=== PATIENT | male | born 1955 | race Caucasian/White ===

== ENCOUNTER → 2024-09-10 | Outpatient (CLI) | payer BC, SELFPAY ==
[2024-09-10 11:26] LABS: Glucose Estimated Average 315 mg/dL (80-131); Hemoglobin A1C 12.6 % Hgb (4.8-6.0)
== END | disposition home or self-care (01) ==
LOC: COPL 09:35
PROVIDERS: PCP Family Medicine; Referring Provider Family Medicine; Visit Provider Family Medicine
DX: Z00.01 Encounter for general adult medical examination with abnormal findings (principal); E11.65 Type 2 diabetes mellitus with hyperglycemia
CPT/HCPCS: 36415; 80053; 80061; 83036; 84153

== ENCOUNTER → 2024-09-13 | Outpatient (CLI) | payer BC, SELFPAY ==
[2024-09-13 10:08] LABS: Microalbumin, 24hr Urine > 380 mg/L (Unavailable)
[2024-09-13 10:25] LABS: Alanine Aminotransferase 37 U/L (10-49); Albumin, Serum 4.6 gm/dL (3.4-4.8); Albumin/Globulin Ratio 1.6 (1.2-2.2); Alkaline Phosphatase 81 U/L (46-116); Anion Gap 13 (7-16); Aspartate Amino Transferase 22 U/L (0-34); BUN/Creatinine Ratio 11 Ratio (12-20); Bilirubin,Total 0.5 mg/dL (0.3-1.2); Blood Urea Nitrogen 11 mg/dL (9-23); Calcium 9.9 mg/dL (8.3-10.6); Calcium (Corrected) 9.9 mg/dL (8.5-10.1); Carbon Dioxide 22.6 mMol/L (20.0-31.0); Cardiac Risk Estimate 6.8 RATIO (4.0-6.7); Chloride 103 mMol/L (98-107); Cholesterol 271 mg/dL (132-200); Globulin 2.9 gm/dL (2.3-3.5); Glucose 300 mg/dL (74-106); HDL Cholesterol 40 mg/dL (40-60); Osmolality,Calculated 287 (275-295); Potassium 4.1 mMol/L (3.4-5.1); Sodium 139 mMol/L (136-145); Total Protein 7.5 gm/dL (5.7-8.2); Triglycerides > 1000 mg/dL (30-150); eGFR > 60 See Note
[2024-09-13 10:26] LABS: Microalbumin, 24hr U mcg/min 884 mg/L (<20); Microalbumin, 24hr U mg/24 1273 mg/24hr (<30); Microalbumin, Urine Volume 3350 mL/24hr (600-1800)
[2024-09-13 19:15] LABS: Prostate Specific Antigen 3.96 ng/mL (0-4.00)
[2024-09-15 06:33] LABS: Fecal Globin Result NOT DETECTED (NOT DETECTED)
== END | disposition home or self-care (01) ==
LOC: COPL 07:10
PROVIDERS: PCP Family Medicine; Referring Provider Family Medicine; Visit Provider Family Medicine
DX: Z00.01 Encounter for general adult medical examination with abnormal findings (principal); E11.65 Type 2 diabetes mellitus with hyperglycemia
CPT/HCPCS: 36415; 80053; 80061; 82043; 82274; 84153; G0328

== ENCOUNTER → 2024-09-24 | Outpatient (CLI) | payer BC, SELFPAY ==
--- NOTE | 2024-09-24 11:00 | XR_ITS ---
Examination: CT maxillofacial, without intravenous contrast. 2-D sagittal reconstructions. 3-D reconstructions. 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 2-D sagittal and coronal reconstructions. 3-D reconstructions. Low dose protocols were performed. One or more of the following dose reduction techniques were used; automated exposure control, adjustment of the mA and/or KV according to patient size, use of iterative reconstruction technique. Findings: The optic globes exhibit symmetry with no retro-orbital mass lesions Bilateral parotid glands appear prominent Symmetrical oropharynx nasopharynx Bilateral submandibular glands are prominent The larynx appears normal The epiglottis is not thickened IMPRESSION: Bilateral parotid and submandibular gland enlargement, clinical correlation advised Consider follow-up MRI soft tissue neck.
== END | disposition home or self-care (01) ==
LOC: CCTX 10:28
PROVIDERS: PCP Family Medicine; Referring Provider Family Medicine; Visit Provider Family Medicine
DX: R59.0 Localized enlarged lymph nodes (principal)
CPT/HCPCS: 70486

== ENCOUNTER → 2024-12-13 | Outpatient (CLI) | payer BC, SELFPAY ==
[2024-12-13 13:34] LABS: Cardiac Risk Estimate 7.8 RATIO (4.0-6.7); Cholesterol 297 mg/dL (132-200); HDL Cholesterol 38 mg/dL (40-60); Triglycerides 1482 mg/dL (30-150)
== END | disposition home or self-care (01) ==
LOC: COPL 12:41
PROVIDERS: PCP Family Medicine; Referring Provider Internal Medicine Cardiovascular Disease; Visit Provider Internal Medicine Cardiovascular Disease
DX: I20.89 Other forms of angina pectoris (principal); I10 Essential (primary) hypertension; E11.9 Type 2 diabetes mellitus without complications; E78.1 Pure hyperglyceridemia
CPT/HCPCS: 36415; 80061

== ENCOUNTER → 2024-12-16 | Outpatient (CLI) | payer BC, SELFPAY ==
--- NOTE | 2024-12-16 08:00 | XR_ITS ---
Examination: MRI of orbits face neck, without contrast Date and time of exam: December 16, 2024 0803 hours INDICATIONS: Palpable swelling both sides of the neck on clinical examination by physician several weeks ago Technique: Multiple axial sagittal and coronal images of the orbits face neck have been obtained with the Siemens high-resolution 1.5 [employer] MRI scanner. Images obtained include T2-weighted fat-suppressed sagittal sections, TR 3500, TE 46, T2 weighted coronal fat suppressed images, TR 3050, TE 84, T2-weighted transverse fat suppressed images, TR 3260, TE 63, proton density transverse images, TR 4720 TE 46, and T1 weighted coronal images, TR 560, TE 13. Findings: Maxillary antra are clear Symmetrical nasopharynx oropharynx Symmetrical parotid glands No carotid inflammatory change Symmetrical submandibular glands No pathologic carotid triangle submental or posterior cervical lymphadenopathy The larynx appears normal No ankle joint upon the subglottic region Thyroid lobes are not enlarged Normal epiglottis No prevertebral soft tissue prominence IMPRESSION: Mild symmetrical parotid gland enlargement No sialadenitis pattern No pathologic cervical lymphadenopathy
== END | disposition home or self-care (01) ==
LOC: SMRI 07:32
PROVIDERS: PCP Family Medicine; Referring Provider Otolaryngology Facial Plastic Surgery; Visit Provider Otolaryngology Facial Plastic Surgery
DX: R59.0 Localized enlarged lymph nodes (principal)
CPT/HCPCS: 70540

== ENCOUNTER → 2025-03-30 | Outpatient (CLI) | payer BC, SELFPAY ==
[2025-03-30 10:10] LABS: Cardiac Risk Estimate 8.5 RATIO (4.0-6.7); Cholesterol 280 mg/dL (132-200); HDL Cholesterol 33 mg/dL (40-60); Triglycerides 1072 mg/dL (30-150)
== END | disposition home or self-care (01) ==
LOC: COPL 08:44
PROVIDERS: PCP Family Medicine; Referring Provider Internal Medicine Cardiovascular Disease; Visit Provider Internal Medicine Cardiovascular Disease
DX: I20.89 Other forms of angina pectoris (principal); E11.9 Type 2 diabetes mellitus without complications; E78.1 Pure hyperglyceridemia
CPT/HCPCS: 36415; 80061

== ENCOUNTER → 2025-05-17 | Outpatient (CLI) | payer BC, SELFPAY ==
[2025-05-17 09:53] LABS: Basophils # (Auto) 0.0 Thou/mm3 (0.0-0.2); Basophils % (Auto) 1 % (0-2.5); Eosinophils # (Auto) 0.1 Thou/mm3 (0.0-0.5); Eosinophils % (Auto) 2 % (0-10); Hematocrit 47.8 % (41.0-53.0); Hemoglobin 16.1 g/dL (13.5-16.0); Immature Granulocytes Auto 0.03 Thou/mm3 (0.00-0.00); Lymphocytes # (Auto) 1.8 Thou/mm3 (1.0-4.8); Lymphocytes % (Auto) 31 % (10-50); Mean Corpuscular HGB Conc 33.7 g/dl (31.0-37.0); Mean Corpuscular Hemoglobin 27.7 pg (25.0-35.0); Mean Corpuscular Volume 82 fL (80-100); Monocytes # (Auto) 0.5 Thou/mm3 (0.0-0.8); Monocytes % (Auto) 9 % (0-12); Neutrophils # (Auto) 3.3 Thou/mm3 (1.8-7.7); Neutrophils % (Auto) 57 % (37-80); Nucleated Red Blood Cell # 0.00 Thou/mm3 (0.00-0.00); Nucleated Red Blood Cell % 0 /100 WBC (0); Platelet Count 223 Thou/mm3 (140-440); RDW Standard Deviation 39.3 fL (35.1-43.9); Red Blood Count 5.81 Miln/mm3 (4.50-5.90); White Blood Count 5.8 Thou/mm3 (3.8-10.6)
[2025-05-17 10:01] LABS: Glucose Estimated Average 212 mg/dL (80-131); Hemoglobin A1C 9.0 % Hgb (4.8-6.0)
[2025-05-17 10:04] LABS: Alanine Aminotransferase 34 U/L (10-49); Albumin, Serum 4.8 gm/dL (3.4-4.8); Albumin/Globulin Ratio 1.7 (1.2-2.2); Alkaline Phosphatase 38 U/L (46-116); Anion Gap 13 (7-16); Aspartate Amino Transferase 20 U/L (0-34); BUN/Creatinine Ratio 13 Ratio (12-20); Bilirubin,Total 0.7 mg/dL (0.3-1.2); Blood Urea Nitrogen 17 mg/dL (9-23); Calcium 10.3 mg/dL (8.3-10.6); Calcium (Corrected) 10.3 mg/dL (8.5-10.1); Carbon Dioxide 24.5 mMol/L (20.0-31.0); Cardiac Risk Estimate 5.6 RATIO (4.0-6.7); Chloride 104 mMol/L (98-107); Cholesterol 190 mg/dL (132-200); Creatinine (Component) 1.3 mg/dL (0.6-1.3); Globulin 2.9 gm/dL (2.3-3.5); Glucose 226 mg/dL (74-106); HDL Cholesterol 34 mg/dL (40-60); Osmolality,Calculated 289 (275-295); Potassium 3.8 mMol/L (3.4-5.1); Sodium 141 mMol/L (136-145); Total Protein 7.7 gm/dL (5.7-8.2); Triglycerides 487 mg/dL (30-150); eGFR > 60 See Note
[2025-05-17 10:27] LABS: Creatinine MALB Rnd Ur 115 mg/dL (30-125)
[2025-05-17 10:48] LABS: Microalbumin Creat Ratio 398 mg/gCrea (<30); Microalbumin, Random Urine 458 mg/L (0-300)
== END | disposition home or self-care (01) ==
LOC: COPL 08:45
PROVIDERS: PCP Internal Medicine; Referring Provider Internal Medicine; Visit Provider Internal Medicine
DX: E11.65 Type 2 diabetes mellitus with hyperglycemia (principal); E78.5 Hyperlipidemia, unspecified; I10 Essential (primary) hypertension
CPT/HCPCS: 36415; 80053; 80061; 82043; 82570; 83036; 85025

== ENCOUNTER → 2025-06-01 | Outpatient (CLI) | payer BC, SELFPAY ==
--- NOTE | 2025-06-01 12:33 | XR_ITS ---
Examination: Right knee 4 views Technique one AP oblique lateral axial right knee 4 views Date and time: June 01 2025 1314 hours INDICATIONS: Right knee pain beginning 3 months ago. FINDINGS: Mild narrowing medial joint space No fracture or dislocation No ossified joint bodies Small knee effusion IMPRESSION: Mild narrowing medial joint space
== END | disposition home or self-care (01) ==
LOC: CDIM 12:07
PROVIDERS: PCP Family Medicine; Referring Provider Internal Medicine; Visit Provider Internal Medicine
DX: M25.861 Other specified joint disorders, right knee (principal)
CPT/HCPCS: 73564

== ENCOUNTER → 2025-07-07 | Outpatient (CLI) | payer BC, SELFPAY ==
--- NOTE | 2025-07-07 12:30 | XR_ITS ---
Exam: MRI knee without contrast, right Date and time of exam: July 07, 2025, 1311 hours INDICATIONS: Right knee pain beginning 6 months ago Technique: Multiple axial, coronal, and sagittal sections on the knee have been obtained. T2-Weighted sagittal, fat-suppressed images, TR 3,500, TE 62, T2 weighted coronal fat-saturated images, TR 3,500, TE 62 Proton density sagittal sections, TR 1800, TE 31. T-1 weighted coronal images, TR 524, TE 13.0 Findings: Medial meniscus anterior horn intact. Medial meniscus, body intrasubstance degeneration. Posterior horn medial meniscus horizontal linear tear. Lateral meniscus anterior horn is intact Lateral meniscus, body is intact Posterior horn lateral meniscus is intact Anterior cruciate ligament moderate sprain Posterior cruciate ligament appears intact. Knee effusion is small. Quadriceps and patellar tendons appear intact. There is no evidence of tendinosis. Inflammatory change or fracture of Hoffa's fat pad is not seen. Medial patellar facet demonstrates moderate thinning. Lateral patellar facet cartilage demonstrates moderate thinning. Trochlear cartilage demonstrates moderate thinning. Marrow signal adequate. Medial collateral ligament appears intact. No meniscocapsular separation is seen. Illiotibial band and fibular collateral ligament are intact. Biceps femoris tendons appear intact. Medial femoral condylar articular cartilage demonstrates moderate thinning. Lateral femoral condylar articular cartilage demonstrates moderate thinning. Tibial plateau cartilage demonstrates moderate thinning. 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
== END | disposition home or self-care (01) ==
LOC: SMRI 12:14
PROVIDERS: Referring Provider Internal Medicine; Visit Provider Internal Medicine
DX: S83.241A Other tear of medial meniscus, current injury, right knee, initial encounter (principal); S83.511A Sprain of anterior cruciate ligament of right knee, initial encounter; X58.XXXA Exposure to other specified factors, initial encounter
CPT/HCPCS: 73721